=== PATIENT | female | born 1980 | race African-American/Black ===

== ENCOUNTER 2016-12-28 08:41 | Emergency (ER) | payer BC, OTHER ==
[2016-12-28 08:46] VITALS: BP 150/81; PULSE 75; TEMP 98.2; BMI 44.2
--- NOTE | 2016-12-28 09:10 | PDOC ---
"History of Present Illness - General Chief Complaint: Back Pain Stated Complaint: LOWER BACK PAIN Time Seen by Provider: 12/28/16 09:08 History Source: Patient Exam Limitations: No Limitations - History of Present Illness Initial Comments: 12/28/16 09:10 Chief complaint: Right-sided lower back pain that radiates to her right hip and groin area 2 days History of present illness: She is a 36 year old female with a history of right degenerative hip, herniated discs in her lower back is unsure of what level and gerd. Patient reports that 2 days ago she started to feel pain in her right lower back that radiated to her right hip and right groin area. Patient reports that she feels a clicking in her back at times. Patient denies any numbness of her legs, or any saddle anesthesia or any incontinency. Patient reports that she had been seen by Dr. Chaney this past winter and was referred to physical therapy for which she went for a short time until her insurance would not allow her to continue to go. Patient was to follow up with Dr. Chaney in January. Patient has been taking Naprosyn for the last couple of days with some relief of pain. Patient also tried taking cyclobenzaprine that she had been given previously but this did not help with the pain. Patient did not take any Naprosyn today. Patient reports the pain is worse with standing or walking relieved by sitting or lying. 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 Patient reports the pain currently is an 8 out of 10 aching in nature. Past medical history:DJD hips rt > than left, herniated disc lumbar ? level Past surgical history: Social history: Allergies: No known allergies 12/28/16 09:59 12/28/16 10:06 12/28/16 10:06 Past History - Past Medical History Allergies/Adverse Reactions: Allergies Allergy/AdvReac Type Severity Reaction Status Date / Time No Known Allergies Allergy Verified 12/28/16 08:46 Home Medications: Ambulatory Orders Naproxen [Naprosyn -] 500 mg PO BID PRN #14 tablet MDD 2 12/28/16 Oxycodone HCl/Acetaminophen [Percocet 5-325 mg Tablet] 1 tab PO Q6H PRN #8 tablet MDD 4 12/28/16 Anemia: Yes (during ) Asthma: No Cancer: No Cardiac Disorders: No CVA: No COPD: No CHF: No Dementia: No Diabetes: No GI Disorders: Yes (gastric reflux) Disorders: No HTN: Yes (during ) Hypercholesterolemia: No Liver Disease: No Seizures: No Thyroid Disease: No - Surgical History Abdominal Surgery: No Appendectomy: No Cardiac Surgery: No Cholecystectomy: No Lung Surgery: No Neurologic Surgery: No Orthopedic Surgery: No - Psycho/Social/Smoking Cessation Hx Suicidal Ideation: No Smoking Status: Yes Smoking History: Current every day smoker Have you smoked in the past 12 months: Yes Number of Cigarettes Smoked Daily: 10 Information on smoking cessation initiated: Yes 'Breaking Loose' booklet given: 12/28/16 Hx Alcohol Use: No Drug/Substance Use Hx: No Substance Use Type: None Hx Substance Use Treatment: No Review of Systems - Review of Systems Able to Perform ROS?: Yes Constitutional: No: Symptoms Reported HEENTM: No: Symptoms Reported Respiratory: No: Symptoms reported Cardiac (ROS): No: Symptoms Reported ABD/GI: No: Symptoms Reported : No: Symptoms Reported Musculoskeletal: Yes: Back Pain (rt. lumbar paraspinal muscle, no midline pain) , Joint Pain (rt. hip/radiates to groin ), Other. No: Joint Swelling Integumentary: No: Symptoms Reported Neurological: No: Symptoms reported *Physical Exam - Vital Signs Last Vital Signs Temp Pulse Resp BP Pulse Ox 98.2 F 75 18 150/81 100 12/28/16 08:43 12/28/16 08:43 12/28/16 08:43 12/28/16 08:43 12/28/16 08:43 - Physical Exam General Appearance: Yes: Appropriately Dressed Respiratory/Chest: positive: Lungs Clear, Normal Breath Sounds. negative: Chest Tender, Respiratory Distress Cardiovascular: positive: Regular Rhythm, Regular Rate, S1, S2 Gastrointestinal/Abdominal: positive: Normal Bowel Sounds, Soft. negative: Tender, Organomegaly, Distended, Guarding, Rebound, Tenderness, Hepatomegaly, Spleenomegaly Musculoskeletal: positive: Normal Inspection, Decreased Range of Motion (at waist ), Other (rt. paraspinal muscle tenderness ). negative: CVA Tenderness, CVA Tenderness (R), CVA Tenderness (L), Vertebral Tenderness Extremity: positive: Normal Capillary Refill, Normal Inspection, Tender (rt. hip ). negative: Normal Range of Motion (rt. hip with abduction) Integumentary: positive: Normal Color Neurologic: positive: Alert, Normal Response, Motor Strength 5/5 (b/l legs), Respond to painful stimul (b/l legs), Responsive, Other (negative SLR ). negative: Numbness, Sensory Deficit (b/l legs) Deep Tendon Reflexes: Knee (L): 3+, Knee (R): 3+ Medical Decision Making - Medical Decision Making 12/28/16 10:03 She is a 36 year old female with a history of right degenerative hip and patient reports having herniated discs in her lower back is unsure of what level. Patient reports that 2 days ago she started to feel pain in her right lower back that radiated to her right hip and right groin area. Patient reports that she feels a clicking in her back at times. Patient denies any numbness of her legs, or any saddle anesthesia or any incontinency. Patient reports that she had been seen by Dr. Chaney this past winter and was referred to physical therapy for which she went for a short time until her insurance would not allow her to continue to go. Patient was to follow up with Dr. Chaney in January. Patient has been taking Naprosyn for the last couple of days with some relief of pain. Patient also tried taking cyclobenzaprine that she had been given previously but this did not help with the pain. Patient did not take any Naprosyn today. Patient reports the pain is worse with standing or walking relieved by sitting or lying. 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 Patient reports the pain currently is an 8 out of 10 aching in nature. Right lower back pain with radiation rt. hip/groin PLAN: xray lumbar spine no acute bony abnormalities are seen, compression deformities , spondylolisthesis appro 4 cm diamtter over the superior of sacrum, correlate for fibroid, sclerotic chnages area noted superior anterior aspect of T12 Dr. Raymond toradol 60 mg IM now follow up with Dr. Chaney percocet 5mg/325 mg po q6 hrs prn severe pain #8 tabs Naprosyn 500 mg bid prn pain #14 12/28/16 10:09 12/28/16 10:15 Confidential Drug Utilization Report Search Terms: Leena Wilkinson, 1980 Search Date: 12/28/2016 10:15:01 AM The Drug Utilization Report below displays all of the controlled substance prescriptions, if any, that your patient has filled in the last twelve months. The information displayed on this report is compiled from pharmacy submissions to the Department, and accurately reflects the information as submitted by the pharmacies. This report was requested by: Merry Leonard | Reference #: [id number] *DC/Admit/Observation/Transfer Diagnosis at time of Disposition: Back pain with right-sided radiculopathy - Discharge Dispostion Disposition: HOME Condition at time of disposition: Stable - Referrals Referrals: France Ruth MD [Primary Care Provider] - Al Chaney MD [Staff Physician] - - Patient Instructions Additional Instructions: Follow-up with Dr. 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
[2016-12-28] MEDS ORDERED: KETOROLAC TROMETHAMINE 60 MG/2 ML VIAL IM ONE (09:27)
[2016-12-28] MEDS ORDERED: KETOROLAC TROMETHAMINE 60 MG/2 ML VIAL ONE (09:32)
== END 2016-12-28 10:24 | disposition home or self-care (01) ==
LOC: JERFT 08:41
PROC: 3E0233Z Introduction of Anti-inflammatory into Muscle, Percutaneous Approach (ICD-10-PCS; principal; 2016-12-28)
DX: M54.16 Radiculopathy, lumbar region (principal)
CPT/HCPCS: 72100-TC; 99281-25

== ENCOUNTER 2019-01-28 16:50 | Day surgery (SDC) | payer BC ==
[2019-01-27 14:02] VITALS: BMI 42.5
[~2019-01-28 16:50] MED LIST: BUPIVACAINE HCL/PF 0.25% (2.5MG/ML) 10 ML VIAL IJ ONE; BUPIVACAINE HCL/PF 2.5 MG/ML - 30 ML VIAL IJ ONE; DEXAMETHASONE SOD PHOSPHATE 4 MG/1 ML VIAL ONE; KETAMINE HCL 200 MG/20 ML VIAL ONE; KETOROLAC TROMETHAMINE 30 MG/1 ML VIAL ONE; LABETALOL HCL 5 MG/1 ML (100MG/20 ML VIAL) IVPUSH PRN; LIDOCAINE HCL 1% PRESERVATIVE FREE - 30ML VIAL ONE; LIDOCAINE HCL 1%, 10 MG/ML (50 mL VIAL) IJ ONE; MIDAZOLAM HCL 2 MG/2 ML SINGLE DOSE VIAL ONE; ONDANSETRON 4 MG/2 ML VIAL IVPUSH PRN; ONDANSETRON 4 MG/2 ML VIAL ONE; PROMETHAZINE HCL 25 MG/1 ML VIAL IVPB PRN; PROPOFOL 20 ML ONE; VANCOMYCIN 1,000 MG VIAL (RESTRICTED TO ID ONLY) ONE; oxyCODONE HCL 5 MG TABLET PO PRN
[2019-01-28] MEDS: oxyCODONE HCL 5 MG TABLET PO PRN (19:30)
--- NOTE | 2019-01-28 20:13 | OP ---
DATE OF OPERATION: 01/28/2019 PREOPERATIVE DIAGNOSIS: Multiple sinus cyst in the pilonidal area. Combination of hidradenitis suppurativa and pilonidal abscess. POSTOPERATIVE DIAGNOSIS: Multiple sinus cyst in the pilonidal area. Combination of hidradenitis suppurativa and pilonidal abscess. OPERATIVE PROCEDURE: Wide debridement of the abscess and sinus cyst. SURGEON: Lydia Martin M.D. ANESTHESIA: Local sedation. DESCRIPTION OF PROCEDURE: Patient has had a hip replacement recently, and history of multiple draining abscesses in the gluteal area between the gluteal fold. With this, the patient was placed in the prone position. Intravenous vancomycin was given, and local Marcaine was injected with IV sedation, and transverse incision was made between the 2 sinuses, one on the right buttock and and another one on the left buttock, and obviously there was a lot of subcutaneous necrotic tissues, which were all thoroughly debrided and curetted, and then pulse lavage was used, and once it was irrigated and all the necrotic tissues were excised, the wound was packed with iodoform gauze, and the patient went to recovery room in stable condition. LYDIA MARTIN M.D. [id number]
[2019-01-28] MEDS: VANCOMYCIN 1 GM in D5W (PRE-DOCKED) 1,000 MG/250 ML IVPB SCH (21:07)
[2019-01-29 06:01] VITALS: PULSE 58
[2019-01-29 09:10] VITALS: BP 174/80; TEMP 98.1
[2019-01-29] MEDS: VANCOMYCIN 1 GM in D5W (PRE-DOCKED) 1,000 MG/250 ML IVPB SCH (09:21)
[2019-01-29] MEDS: oxyCODONE HCL 5 MG TABLET PO PRN (09:22)
== END 2019-01-29 15:48 | disposition home or self-care (01) ==
LOC: FM/S 16:50 → FASUSAT 16:50
PROVIDERS: ATTEND Surgery Vascular Surgery
PROC: 0JB90ZZ Excision of Buttock Subcutaneous Tissue and Fascia, Open Approach (ICD-10-PCS; principal; 2019-01-28 14:33)
DX: L05.01 Pilonidal cyst with abscess (principal); L73.2 Hidradenitis suppurativa; Z96.649 Presence of unspecified artificial hip joint
CPT/HCPCS: 84703; 87070; 87076; 87077; 87205; 94760

== ENCOUNTER 2022-08-04 20:57 | Emergency (ER) | payer BC ==
[2022-08-04 21:18] VITALS: PULSE 99; RESP 20; TEMP 99.1; BMI 40.7
[2022-08-04] MEDS ORDERED: LOSARTAN POTASSIUM 25 MG TABLET PO ONE (21:47)
[2022-08-04] MEDS ORDERED: MAGNESIUM CITRATE 300 ML BOTTLE PO ONE (21:58)
[2022-08-04] MEDS ORDERED: PEG 3350/NA SULF BICARB CL/KCL 4000 ML SOLN.RECON PO ONE (22:00)
[2022-08-04] MEDS ORDERED: POLYETHYLENE GLYCOL 3350 255 GM BTL PO ONE (22:12)
[2022-08-04] MEDS ORDERED: LOSARTAN POTASSIUM 25 MG TABLET ONE (22:14)
[2022-08-04 22:17] VITALS: BP 168/86
== END 2022-08-05 00:23 | disposition home or self-care (01) ==
LOC: JER 20:57
DX: K59.03 Drug induced constipation (principal)
CPT/HCPCS: 74019-TC-FY; 99283-25